=== PATIENT | female | born 1985 | race Caucasian/White ===

== ENCOUNTER 2025-01-13 08:37 | Outpatient (AMB) | payer OTHER, SELFPAY ==
--- NOTE | 2025-01-13 08:45 | AMB.OBINITIA ---
Vital Signs 01/13/25 08:46 Height 1.7 m Height Method Stated Weight 129.727 kg Weight Measurement Method Standing Scale BMI 44.8 BP 132/84 H Blood Pressure Source Automatic Cuff Blood Pressure Location Left Upper Arm Position Sitting Respiration 16 Pulse 85 Pulse Source Monitor Temp 98.2 F Temp Source Oral Pulse Oximetry (%) 97 Oxygen Delivery Method Room Air Allergies/Home Meds Allergies & Medications Allergies No Known Allergies Allergy (Verified 01/13/25 08:48) Medication Reconciliation [id number] 1 mg tablet 1 tab PO DAILY 07/21/21 [History Confirmed 01/13/25] ibuprofen 800 mg tablet 800 mg PO Q6H PRN pain #30 tabs 08/28/21 [Rx] Intake Visit Data Collection New Patient or Established: Established Patient (seen at [facility] within 3 years) Reason for Visit:: PEACE MARAVILLA Seen by Clinical Staff ONLY (RN/MA): No 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 1. Little interest or pleasure in doing things: not at all 2. Feeling down, depressed, or hopeless: not at all Total score: 0 PHQ-9 3. Trouble falling or staying asleep, or sleeping too much: Not at all 4. Feeling tired or having little energy: Not at all 5. Poor appetite or overeating: Not at all 6. Feeling bad about yourself - or that you are a failure or have let yourself or your family down: Not at all 7. Trouble concentrating on things, such as reading the newspaper or watching television: Not at all 8. Moving or speaking so slowly that other people could have noticed? - Or the opposite - being so fidgety or restless that you have been moving around a lot more than usual: not at all 9. Thoughts that you would be better off or of hurting yourself in some way: Not at all Total score: 0 If you checked off any problems, how difficult have these problems made it for you to do your work, take care of things at home, or get along with other people?: not difficult at all Source: Developed by Drs. Zan Wheat, Chelsea Navarro, Joe Davila and colleagues, with an educational mendy from [employer]. Depression screen completed yes Social History Living Situation History Marital Status: Single Lives With: Family Housing: House Tobacco History Smoking Status: Never smoker Second Hand Smoke Exposure: No Alcohol History Alcohol Intake: Never Domestic Abuse History Do You Feel Safe at Home: Yes History of Present Illness HPI Narrative 39-year-old 4 para 3 for OBI. Patient has poor dates and irregular. She thinks maybe her last period was November 05, 2024. This gives a due date of August 11, 2025. Patient had some spotting the previous week no bleeding now. Denies leaking. Denies cramping. Patient is happy about the previous . Denies any existing medical health issues except for obesity. She drinks occasionally. And she has no surgeries. Patient has no first trimester discomforts. 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 History Past Medical History: No Hx Neurological Disorders, No Hx Breast Cancer, No Hx Cardiac Disorders, No Hx Cancer, No Hx Blood Disorders, No Hx Gastrointestinal Disorders, No Hx Renal Disease, No Hx Diabetes Mellitus Type 1 and No Hx Diabetes Mellitus Type 2 OB Initial Visit Menstrual History Menstrual reliability: approximate (month known) Flow: normal Menstrual regularity: regular Monthly: Yes Age at menarche: 14 On control pills at conception: No OB History : 4 Para: 3 Hx # Pregnancies: 0 Hx Total # of Abortions (Spontaneous & Elective): 0 # of Living Children: 3 Delivery History 1st : Child's name: MEGHAN GARCIA date: 03/23/05 sex: male Gestational age at delivery (weeks): 40 Delivery type: vaginal weight (lbs): 3628.739 g History of depression before or after : No 2nd : Child's name: DORIS GARCIA date: 05/12/08 sex: male Gestational age at delivery (weeks): 38 Delivery type: vaginal weight (lbs): 3628.739 g History of depression before or after : No 3rd : Child's name: ADRI BARTON date: 08/27/21 sex: male Gestational age at delivery (weeks): 40 Delivery type: vaginal weight (lbs): 3628.739 g History of depression before or after : No Infection History & Risk Evaluation History of STDs: none HIV risk evaluation: low risk Hepatitis B risk evaluation: low risk Patient or partner has history of Genital Herpes: No Varicella/chicken pox status: immunized Genetic Screening & History Genetic Screening/Teratology Counseling - Includes patient, baby's father, or anyone in either family with: 1. Patient's age 35 years or older as of estimated date of delivery: Yes 2. Thalassemia (Bangladeshi, East Timorese, Mediterranean, or Background); MCV less than 80: No 3. Neural Tube Defect (Meningomyelocele, Spina Bifida, or Anencephaly): No 4. Congenital Heart Defect: No 5. Down Syndrome: No 6. Niall-Sachs (Ashkenazi Rastafarian, Cajun, Ugandan Bahraini): No 7. Ivis Disease (Ashkenazi Rastafarian): No 8. Familial Dysautonomia (Ashkenazi Rastafarian): No 9. Sickle Cell Disease or Trait (): No 10. Hemophilia or other blood disorders: No 11. Muscular Dystrophy: No 12. Cystic Fibrosis: No 13. Manish's Chorea: No 14. Mental Retardation/Autism: No 15. Other inherited genetic or chromosomal disorder: No 16. Maternal Metabolic Disorder (EG,TYPE 1 Diabetes, PKU): No 17. Patient or baby's father had a child with defects not listed above: No 18. Recurrent loss or a stillbirth: No 19. Medications (including supplements, vitamins, herbs or otc drugs)/illicit/recreational drugs/alcohol since last menstrual period: No 20. Any other: No Infection History 1. Live with someone with TB or exposed to TB: No 2. Rash or viral illness since last menstrual period: No 3. Hepatitis B,C: No Other (see comments) Source: [employer] Review of Systems Review of Systems Systems Reviewed: All systems reviewed, normal except as documented Exam General Limitations: no limitations General Appearance: alert, in no apparent distress, comfortable, cooperative, healthy appearing, well developed and well groomed Head Head exam: atraumatic, normocephalic and normal inspection Chest Chest inspection: Present normal inspection and symmetric chest wall rise Resp Respiratory exam: Present normal lung sounds bilaterally Card Cardiovascular exam: Present regular rate, normal rhythm and normal heart sounds Abdominal Abdominal exam: Present soft and normal bowel sounds Psych Psychiatric exam: Present normal affect and normal mood Office Procedures OBC Clinic LOC & Office Proc's Nursing/Assessment Patient Status: Established Patient OB Clinic Nursing Assessment: Medication Reconciliation, Update PMH in EMR and Vital Signs OB Clinic Coordination of Care: Consent,records obtained, informed consent, Education Simp Pt/Fam, Lab and Imaging orders, Results/Orders obtained and Staff clarify orders Special Needs: Heart tones Established Patient Charge Established Patient Point Assignment: 110 Established Patient Point Charge: EP Level 3 (80-115) Assessment & Plan Diagnosis / Problem List (1) Encounter for supervision of high risk in first trimester, antepartum: Status: Acute (2) Obesity affecting , antepartum: Status: Acute Qualifiers: Obesity type affecting : severe obesity due to excess calories Qualified Code(s): O99.210 - Obesity complicating , unspecified trimester; E66.01 - Morbid (severe) obesity due to excess calories Plan Schedule with M for NIPT and anatomy scan. Patient scheduled Dr. Julio. OB on panel today with NIPT, carrier screen and hemoglobin A1c, discussed SAB precautions. Continue prenatals. Return 4 weeks OB check
[2025-01-13 08:46] VITALS: BP 132/84; PULSE 85; RESP 16; TEMP 36.8; O2SAT 97; BMI 44.8
== END 2025-01-13 09:20 | disposition home or self-care (01) ==
LOC: HODSOBC 08:37
PROVIDERS: PCP Nurse Practitioner Family; Referring Provider Nurse Practitioner Family; Supervising Provider Advanced Practice Midwife; Visit Provider Advanced Practice Midwife
DX: O09.891 Supervision of other high risk pregnancies, first trimester (principal); O99.211 Obesity complicating pregnancy, first trimester; O09.521 Supervision of elderly multigravida, first trimester; Z3A.00 Weeks of gestation of pregnancy not specified
CPT/HCPCS: 99213; G0463

== ENCOUNTER 2025-02-17 13:04 | Outpatient (AMB) | payer OTHER, SELFPAY ==
--- NOTE | 2025-02-17 13:10 | AMB.OBVISIT ---
Vital Signs 02/17/25 13:11 Height 1.7 m Height Method Stated Weight 133.016 kg Weight Measurement Method Standing Scale BMI 46.0 BP 122/82 Blood Pressure Source Automatic Cuff Blood Pressure Location Left Upper Arm Position Sitting Respiration 18 Pulse 82 Pulse Source Monitor Temp 97.8 F Temp Source Temporal Artery Scan Pulse Oximetry (%) 98 Oxygen Delivery Method Room Air Allergies/Home Meds Allergies & Medications Allergies No Known Allergies Allergy (Verified 02/17/25 13:11) Medication Reconciliation nitrofurantoin monohydrate/macrocrystals 100 mg capsule (Macrobid) 100 mg PO BID 7 days #14 caps 02/17/25 [Rx] Intake Visit Data Collection New Patient or Established: Established Patient (seen at [facility] within 3 years) Reason for Visit:: OBC Seen by Clinical Staff ONLY (RN/MA): No Computer Systems Information Director Required: No Do You Feel Safe at Home: Yes Authorities Contacted: N/A PCP or OBGYN visit in last 3 months: Yes Date of Last PCP or OBGYN visit: 01/13/25 Hx Now: Yes Are you currently on any form of Control: No Pain Present Currently: No Pain Scale Used: Mccullough-Chau/Numerical Pain scale:: 0 Smoking Status Smoking Status: Never smoker Immunizations Flu Vaccine in the Last 12 Months: No Flu Vaccine Exclusion Criteria: No Exclusion Criteria and Already Received Questionnaires Covid-19 Vaccine Questionnaire Has patient been vacinated for Covid-19 Have you been vacinated for Covid-19: No PHQ-9 PHQ-2 Over the last 2 weeks, how often have you been bothered by any of the following problems? 1. Little interest or pleasure in doing things: not at all 2. Feeling down, depressed, or hopeless: not at all Total score: 0 PHQ-9 3. Trouble falling or staying asleep, or sleeping too much: Not at all 4. Feeling tired or having little energy: Not at all 5. Poor appetite or overeating: Not at all 6. Feeling bad about yourself - or that you are a failure or have let yourself or your family down: Not at all 7. Trouble concentrating on things, such as reading the newspaper or watching television: Not at all 8. Moving or speaking so slowly that other people could have noticed? - Or the opposite - being so fidgety or restless that you have been moving around a lot more than usual: not at all 9. Thoughts that you would be better off or of hurting yourself in some way: Not at all Total score: 0 If you checked off any problems, how difficult have these problems made it for you to do your work, take care of things at home, or get along with other people?: not difficult at all Source: Developed by Drs. Zan Wheat, Chelsea Navarro, Joe Davila and colleagues, with an educational mendy from [employer]. 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 History of irregular periods. Patient thinks her last period November 05, 2024. And this makes EDC August 11, 2025. She denies any bleeding or cramping at this time. She has no first trimester discomforts Schedule MFM appointment with Dr. Julio. OB panel with NIPT, carrier screen and A1c today. Discussed SAB precautions. Return in 4 weeks OB check 02/17/25 <del>?</del> 14w 6d 133.016 kg 122/82 absent unknown 14 145 absent No OB complaints. Doing well. Denies bleeding leaking or contractions GC/CT not done, order GC/CT nv, MFM sono 04/04, discuss sab precaution, AFP nv BEATRIZ Calculator Estimated Delivery Date Method Current WG Current Estimate 08/12/25 LMP (Uncertain) 14w 6d Notes Visit Date: 02/17/25 Last Updated by: Jacquelin John CNM OB panel: NIPT/carrier screen-, O+,abs-,rpr;;nr, rub imm, hbsag-,hiv-,hc-, GC/CT-, A1c: 5.4 Visit Date: 01/13/25 Last Updated by: Jacquelin John CNM 39 yo . lmp 11/05/24. EDC 08/11/25 Office Procedures OBC Clinic LOC & Office Proc's Nursing/Assessment Patient Status: Established Patient OB Clinic Nursing Assessment: Medication Reconciliation, Update PMH in EMR and Vital Signs OB Clinic Coordination of Care: Complex Care and Chronic Disease 1-5, Education Complex Pt/Fam, Consent,records obtained, informed consent, Lab and Imaging orders, Results/Orders obtained and Staff clarify orders Special Needs: Heart tones Established Patient Charge Established Patient Point Assignment: 140 Established Patient Point Charge: EP Level 4 (120-155) Assessment & Plan Diagnosis / Problem List (1) Encounter for supervision of high risk in second trimester, antepartum: Status: Acute (2) Obesity affecting in second trimester: Status: Acute Plan Maternal- medicine scheduled for April 04. Discussed NIPT and carrier screening. aFP next week. Return 4 weeks OB check. Gave patient Macrobid 100 p.o. twice daily for UTI Additional Plan Follow Up: 4 Weeks (obc)
[2025-02-17 13:11] VITALS: BP 122/82; PULSE 82; RESP 18; TEMP 36.6; O2SAT 98; BMI 46.0
== END 2025-02-17 13:25 | disposition home or self-care (01) ==
LOC: HODSOBC 13:04
PROVIDERS: Supervising Provider Advanced Practice Midwife; Visit Provider Advanced Practice Midwife
DX: O09.892 Supervision of other high risk pregnancies, second trimester (principal); O99.212 Obesity complicating pregnancy, second trimester; O23.42 Unspecified infection of urinary tract in pregnancy, second trimester; O09.522 Supervision of elderly multigravida, second trimester; Z3A.14 14 weeks gestation of pregnancy
CPT/HCPCS: 99214; G0463

== ENCOUNTER 2025-03-22 14:54 | Outpatient (AMB) | payer OTHER, SELFPAY ==
--- NOTE | 2025-03-22 14:57 | OBCLNT_ITS ---
Vital Signs 03/22/25 15:06 Height 1.7 m Height Method Stated Weight 136.985 kg Weight Measurement Method Standing Scale BMI 47.4 BP 113/88 H Blood Pressure Source Automatic Cuff Blood Pressure Location Left Upper Arm Position Sitting Respiration 16 Pulse 90 Pulse Source Monitor Temp 97.2 F Temp Source Oral Pulse Oximetry (%) 98 Oxygen Delivery Method Room Air Allergies/Home Meds Allergies & Medications Allergies No Known Allergies Allergy (Verified 03/22/25 15:08) Medication Reconciliation No Known Home Medications 03/22/25 [History Confirmed 03/22/25] Immunizations Immunizations Flu Vaccine in the Last 12 Months: No Flu Vaccine Exclusion Criteria: Refused by Patient Care OB Visit Log OB Flowsheet Initial Weight: Not Recorded Date -?-?-?-?-?-?-?-?-?-?-?-?- EGA Weight BP Alb Glu CTX Pres Fundal ht FHR Mov Dilation Station Effacement Hx Notes Visit Note 01/13/25 -?-?-?-?-?-?-?-?-?-?-?-?- 9w 6d 129.727 kg 132/84 absent unknown 10 145 absent Poor dates. History of irregular periods. Patient thinks her last period November 05, 2024. And this makes EDC August 11, 2025. She denies any bleeding or cramping at this time. She has no first trimester discomforts Schedule MFM appointment with Dr. Julio. OB panel with NIPT, carrier screen and A1c today. Discussed SAB precautions. Return in 4 weeks OB check 02/17/25 -?-?-?-?-?-?-?-?-?-?-?-?- 14w 6d 133.016 kg 122/82 absent unknown 14 145 absent No OB complaints. Doing well. Denies bleeding leaking or contractions GC/CT not done, order GC/CT nv, MFM sono 04/04, discuss sab precaution, AFP nv 03/22/25 -?-?-?-?-?-?-?-?-?-?-?-?- 19w 4d 136.985 kg 113/88 absent unknown 19 145 absent No OB complaints. Denies leaking, bleeding, contractions. Reports light movement. Patient has an MFM appointment April 05, 2025 aFP tomorrow. Discussed labor precautions. Discussed diet and weight gain. Follow-up on April 05 for ultrasound and for further complaint BEATRIZ Calculator Estimated Delivery Date Method Current WG Current Estimate 08/12/25 LMP (Uncertain) 19w 4d Notes Visit Date: 02/17/25 Last Updated by: Jacquelin John CNM OB panel: NIPT/carrier screen-, O+,abs-,rpr;;nr, rub imm, hbsag-,hiv-,hc-, GC/CT-, A1c: 5.4 Visit Date: 01/13/25 Last Updated by: Jacquelin John CNM 39 yo . lmp 11/05/24. EDC 08/11/25 Office Procedures OBC Clinic LOC & Office Proc's Nursing/Assessment Patient Status: Established Patient OB Clinic Nursing Assessment: Medication Reconciliation, Update PMH in EMR and Vital Signs OB Clinic Coordination of Care: Consent,records obtained, informed consent, Educ ation Simp Pt/Fam, Lab and Imaging orders, Results/Orders obtained and Staff clarify orders Special Needs: Heart tones Established Patient Charge Established Patient Point Assignment: 110 Established Patient Point Charge: EP Level 3 (80-115) Assessment & Plan Diagnosis / Problem List (1) Encounter for supervision of high risk in second trimester, antepartum: Status: Acute (2) Obesity affecting in second trimester: Status: Acute Plan aFP. Patient has ultrasound scheduled for April 05. I discussed diet and weight gain. And patient to increase activity and walk 40 minutes a day +10 minutes after each meal. Return in 4 weeks OB check and discussed labor precautions Additional Plan Follow Up: 4 Weeks (obc)
[2025-03-22 15:06] VITALS: BP 113/88; PULSE 90; RESP 16; TEMP 36.2; O2SAT 98; BMI 47.4
== END 2025-03-22 15:26 | disposition home or self-care (01) ==
LOC: HODSOBC 14:54
PROVIDERS: Supervising Provider Advanced Practice Midwife; Visit Provider Advanced Practice Midwife
DX: O09.892 Supervision of other high risk pregnancies, second trimester (principal); O99.212 Obesity complicating pregnancy, second trimester; O09.522 Supervision of elderly multigravida, second trimester; Z3A.19 19 weeks gestation of pregnancy; Z28.21 Immunization not carried out because of patient refusal
CPT/HCPCS: 99213; G0463